=== PATIENT | male | born 1965 | race Two or more races ===

== ENCOUNTER 2019-03-28 13:11 | Outpatient (CLI) | payer OTHER | END 2019-03-28 13:21 | disposition home or self-care (01) | LOC: LAB 13:11 | DX: K21.9 Gastro-esophageal reflux disease without esophagitis (principal); Z12.11 Encounter for screening for malignant neoplasm of colon ==

== ENCOUNTER 2019-04-04 06:25 | Day surgery (SDC) | payer OTHER | END 2019-04-04 10:30 | disposition home or self-care (01) | LOC: AMB-ENDOS 06:25 | DX: K64.1 Second degree hemorrhoids (principal); Z12.11 Encounter for screening for malignant neoplasm of colon ==